=== PATIENT | female | born 1980 | race Two or more races ===

== ENCOUNTER 2019-06-17 18:18 | Emergency (ER) | payer SELFPAY ==
[2019-06-17 18:33] VITALS: BP 105/66
[2019-06-17] MEDS ORDERED: ACETAMINOPHEN 325 MG TABLET PO ONE (18:50)
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
--- NOTE | 2019-06-17 18:50 | ER Document Report ---
ED Medical Screen (RME) - General Chief Complaint: Hand Injury Stated Complaint: FINGER INJURY Time Seen by Provider: 06/17/19 18:38 Mode of Arrival: Ambulatory Information source: Patient - Related Data Allergies/Adverse Reactions: No Known Allergies Allergy (Verified 06/17/19 18:39) Physical Exam - Vital signs Vitals: Temp Pulse Resp BP Pulse Ox 98.5 F 75 18 105/66 98 06/17/19 18:32 06/17/19 18:32 06/17/19 18:32 06/17/19 18:32 06/17/19 18:32 Course - Vital Signs Vital signs: Temp Pulse Resp BP Pulse Ox 98.5 F 75 18 105/66 98 06/17/19 18:32 06/17/19 18:32 06/17/19 18:32 06/17/19 18:32 06/17/19 18:32
--- NOTE | 2019-06-17 19:12 | RADIOLOGY REPORT (SQ) ---
EXAM DESCRIPTION: HAND RIGHT 3 VIEWS COMPLETED DATE/TIME: 06/17/2019 7:02 pm REASON FOR STUDY: pain right index finger and hand COMPARISON: None. EXAM PARAMETERS: NUMBER OF VIEWS: Three views. TECHNIQUE: AP, lateral and oblique radiographic images acquired of the right hand. LIMITATIONS: None. FINDINGS: MINERALIZATION: Normal. BONES: No acute fracture or dislocation. No worrisome bone lesions. JOINTS: No effusions. SOFT TISSUES: Index finger tip soft tissue swelling. No foreign body. OTHER: No other significant finding. IMPRESSION: No acute fracture. TECHNICAL DOCUMENTATION: JOB ID: [id number] [employer]- All Rights Reserved Reading location - IP/workstation name: [email or web address]
== END 2019-06-17 19:35 | disposition home or self-care (01) ==
LOC: ER 18:18
DX: S60.021A Contusion of right index finger without damage to nail, initial encounter (principal); M79.641 Pain in right hand; M79.644 Pain in right finger(s); Y08.09XA Assault by strike by other specified type of sport equipment, initial encounter
CPT/HCPCS: 99283

== ENCOUNTER 2020-06-22 07:47 | Emergency (ER) | payer SELFPAY ==
[2020-06-22 10:11] LABS: ABSOLUTE BASOPHILS # (AUTO) 0.1 10^3/uL (0.0-0.2); ABSOLUTE EOSINOPHILS # (AUTO) 0.3 10^3/uL (0.0-0.6); ABSOLUTE LYMPHOCYTES (AUTO) 2.2 10^3/uL (0.5-4.7); ABSOLUTE MONOCYTES (AUTO) 0.5 10^3/uL (0.1-1.4); ABSOLUTE NEUT (AUTO) 6.3 10^3/uL (1.7-8.2); BASOPHILS % (AUTO) 0.6 % (0-2); EOSINOPHILS % (AUTO) 3.1 % (0-6); HEMATOCRIT 39.6 % (36.0-47.0); HEMOGLOBIN 13.4 g/dL (12.0-15.5); LYMPHOCYTES % (AUTO) 23.6 % (13-45); MEAN CORPUSCULAR HEMOGLOBIN 30.1 pg (27.0-33.4); MEAN CORPUSCULAR HGB CONC 33.8 g/dL (32.0-36.0); MEAN CORPUSCULAR VOLUME 89 fl (80-97); MONOCYTES % (AUTO) 5.4 % (3-13); PLATELET COUNT 324 10^3/uL (150-450); RED BLOOD COUNT 4.44 10^6/uL (3.72-5.28); RED CELL DISTRIBUTION WIDTH 13.2 % (11.5-14.0); SEGMENTED NEUTROPHILS % (AUTO) 67.3 % (42-78); TOTAL CELLS COUNTED % (AUTO) 100 %; WHITE BLOOD COUNT 9.4 10^3/uL (4.0-10.5)
[2020-06-22 10:14] LABS: APPEARANCE,URINE SLIGHTLY-CLOUDY; BILIRUBIN,URINE NEGATIVE (NEGATIVE); COLOR,URINE YELLOW; GLUCOSE, URINE NEGATIVE (NEGATIVE); KETONES,URINE NEGATIVE (NEGATIVE); LEUKOCYTE ESTERASE,URINE NEGATIVE (NEGATIVE); NITRITE,URINE NEGATIVE (NEGATIVE); PROTEIN,URINE NEGATIVE (NEGATIVE); URINE SPECIFIC GRAVITY 1.023; UROBILINOGEN,URINE NEGATIVE mg/dL (<2.0)
--- NOTE | 2020-06-22 10:39 | ER Document Report ---
ED GI/ - General Chief Complaint: Vag Bleeding, +preg <12wks Stated Complaint: VAGINAL BLEEDING Time Seen by Provider: 06/22/20 10:08 Primary Care Provider: ILIA,SANTA [Primary Care Provider] - Follow up as needed Notes: Patient is a 40-year-old female G3, P2 presents emergency department with a chief complaint of lower abdominal cramping. Patient reports that she has had 2 home positive test. Patient reports last night she did have a very small amount of vaginal bleeding. She reports that this was a light pink in color. Denies blood clots. States she is not currently bleeding. Patient reports her last menstrual cycle was May 08. Patient does not have a primary care physician or health insurance. Patient reports she does have some right lower quadrant intermittent pain but that is not significant. Patient reports she has had 2 C-sections in the past. Patient denies urinary symptoms. Initial examination was obtained with a dye machine tender Kiah with an ID number [id number] TRAVEL OUTSIDE OF THE [place] IN LAST 30 DAYS: No - Related Data Allergies/Adverse Reactions: No Known Allergies Allergy (Verified 06/17/19 18:39) Past Medical History - General Information source: Patient - Social History Smoking Status: Never Smoker Chew tobacco use (# tins/day): No Frequency of alcohol use: None Drug Abuse: None Lives with: Family, Spouse/Significant other Family History: Reviewed & Not Pertinent Patient has homicidal ideation: No - Past Medical History Cardiac Medical History: Reports: None Pulmonary Medical History: Reports: None EENT Medical History: Reports: None Neurological Medical History: Reports: None Endocrine Medical History: Reports: None Renal/ Medical History: Reports: None Malignancy Medical History: Reports: None GI Medical History: Reports: None Musculoskeletal Medical History: Reports None Skin Medical History: Reports None Psychiatric Medical History: Reports: None Traumatic Medical History: Reports: None Infectious Medical History: Reports: None Past Surgical History: Reports: Hx Section - Immunizations Immunizations up to date: Yes Hx Diphtheria, Pertussis, Tetanus Vaccination: Yes Review of Systems - Review of Systems Constitutional: No symptoms reported EENT: No symptoms reported Cardiovascular: No symptoms reported Respiratory: No symptoms reported Gastrointestinal: No symptoms reported Genitourinary: See HPI Female Genitourinary: No symptoms reported Musculoskeletal: No symptoms reported Skin: No symptoms reported Hematologic/Lymphatic: No symptoms reported Neurological/Psychological: No symptoms reported Physical Exam - Vital signs Vitals: Temp Pulse Resp BP Pulse Ox 98.6 F 70 18 110/59 L 100 06/22/20 07:53 06/22/20 07:53 06/22/20 07:53 06/22/20 07:53 06/22/20 07:53 Interpretation: Normal - Notes Notes: GENERAL: Well-appearing, well-nourished and in no acute distress. HEAD: Atraumatic, normocephalic. EYES: Pupils equal round and reactive to light, extraocular movements intact, sclera anicteric, conjunctiva are normal. ENT: TMs normal, nares patent, oropharynx clear without exudates. Moist mucous membranes. NECK: Normal range of motion, supple without lymphadenopathy or JVD. LUNGS: Breath sounds clear to auscultation bilaterally and equal. No wheezes rales or rhonchi. HEART: Regular rate and rhythm without murmurs, rubs or gallops. ABDOMEN: Soft, nontender, normoactive bowel sounds. No guarding, no rebound. No masses appreciated. BACK: No cervical, thoracic, lumbar midline tenderness. No saddle anesthesia, normal distal neurovascular exam. GENITOURINARY: Deferred. EXTREMITIES: Normal range of motion, no pitting or edema. No clubbing or cyanosis. NEUROLOGICAL: Cranial nerves II through XII grossly intact. Normal speech, normal gait. PSYCH: Normal mood, normal affect. SKIN: Warm, Dry, normal turgor, no rashes or lesions noted. Course - Re-evaluation Re-evalutation: 06/22/20 13:07 Patient and were updated on the plan of care and the ultrasound results. [employer] interpreting system was used with [id number]. All questions were answered. Patient states she does have a appointment with the health department on Thursday. Patient was given strict return precautions. Patient does not have any pain or current vaginal bleeding at this time. Patient blood type does not require RhoGam at this time. - Vital Signs Vital signs: Temp Pulse Resp BP Pulse Ox 97.7 F 89 15 124/84 100 06/22/20 13:21 06/22/20 13:21 06/22/20 13:21 06/22/20 13:21 06/22/20 13:21 - Laboratory Result Diagrams: 06/22/20 09:50 Laboratory results interpreted by me: 06/22/20 06/22/20 06/22/20 09:50 09:50 09:50 Serum HCG, Qual POSITIVE H Beta HCG, Quant 86573.00 H Urine Ascorbic Acid 40 H 06/22/20 13:40 Patient quant is 15,787. Patient does not have a leukocytosis or significant anemia. Patient's electrolytes are normal. Patient is O+ and does not need Rh oGam. Laboratory 06/22/20 06/22/20 06/22/20 09:50 09:50 09:50 WBC 9.4 RBC 4.44 Hgb 13.4 Hct 39.6 MCV 89 MCH 30.1 MCHC 33.8 RDW 13.2 Plt Count 324 Lymph % (Auto) 23.6 [place] % (Auto) 5.4 Eos % (Auto) 3.1 Baso % (Auto) 0.6 Absolute Neuts (auto) 6.3 Absolute Lymphs (auto) 2.2 Absolute Monos (auto) 0.5 Absolute Eos (auto) 0.3 Absolute Basos (auto) 0.1 Seg Neutrophils % 67.3 Serum HCG, Qual POSITIVE H Beta HCG, Quant Total Beta HCG Urine Color Urine Appearance Urine pH Ur Specific [place] Urine Protein Urine Glucose (UA) Urine Ketones Urine Blood Urine Nitrite Urine Bilirubin Urine Urobilinogen Ur Leukocyte Esterase Urine WBC (Auto) Urine RBC (Auto) Urine Bacteria (Auto) Squamous Epi Cells Auto Urine Mucus (Auto) Urine Ascorbic Acid Blood Type O POSITIVE Rhogam Indicated RHOGAM NOT INDICATED 06/22/20 06/22/20 09:50 09:50 WBC RBC Hgb Hct MCV MCH MCHC RDW Plt Count Lymph % (Auto) [place] % (Auto) Eos % (Auto) Baso % (Auto) Absolute Neuts (auto) Absolute Lymphs (auto) Absolute Monos (auto) Absolute Eos (auto) Absolute Basos (auto) Seg Neutrophils % Serum HCG, Qual Beta HCG, Quant 33383.00 H Total Beta HCG POSITIVE Urine Color YELLOW Urine Appearance SLIGHTLY-CLOUDY Urine pH 5.0 Ur Specific [place] 1.023 Urine Protein NEGATIVE Urine Glucose (UA) NEGATIVE Urine Ketones NEGATIVE Urine Blood NEGATIVE Urine Nitrite NEGATIVE Urine Bilirubin NEGATIVE Urine Urobilinogen NEGATIVE Ur Leukocyte Esterase NEGATIVE Urine WBC (Auto) 5 Urine RBC (Auto) 1 Urine Bacteria (Auto) TRACE Squamous Epi Cells Auto 7 Urine Mucus (Auto) MANY Urine Ascorbic Acid 40 H Blood Type Rhogam Indicated - Diagnostic Test Radiology reviewed: Reports reviewed Radiology results interpreted by me: 06/22/20 13:05 Transvaginal US 06/22/20 10:37 IMPRESSION: Small amount of endocervical canal free fluid. LIVING INTRAUTERINE . EGA 6 weeks 1 day Trimester of : First trimester - 0 to 13 weeks. Discharge - Discharge Clinical Impression: Vaginal bleeding Qualifiers: Weeks of gestation: less than 8 weeks Qualified Code(s): Z3A.01 - Less than 8 weeks gestation of Condition: Stable Disposition: HOME, SELF-CARE Additional Instructions: *Today using the emergency department for vaginal bleeding. Your ultrasound did show a intrauterine around 6 weeks. Please keep your appointment with the health department on Thursday. Please make sure you are taking a vitamin. You can take Tylenol as needed for pain but to avoid anti-inflammatory such as ibuprofen and Aleve. Please make sure you are drinking plenty of water. Please return the emergency department if you have any severe abdominal pain, increasing vaginal bleeding to include blood clots, lightheadedness or any new or worsening symptoms. You are . care is best started as early in as possible. If you're unsure about continuing this , you should discuss this with your physician or with account executive metalworking at [facility]. You should take only medications approved by your physician. Acetaminophen can safely be taken for minor pains. As a rule, medication for chronic conditions such as asthma or seizures can safely be continued. You should discuss with the physician every medicine you take. Any regular exercise program can be continued. Talk to your physician, however, before engaging in competitive or demanding sports. Alcohol, smoking, and "street drugs" are dangerous to your baby. Cocaine is especially dangerous. Don't use any illicit drugs! Referrals: [facility],NO [Primary Care Provider] - Follow up as needed
--- NOTE | 2020-06-22 12:08 | RADIOLOGY REPORT (SQ) ---
EXAM DESCRIPTION: U/S OB TRANSVAG W/DOPPLER IMAGES COMPLETED DATE/TIME: 06/22/2020 11:44 am REASON FOR STUDY: Vaginal bleeding, LMP 05/08 COMPARISON: None. TECHNIQUE: Transvaginal static and realtime grayscale images acquired of the pelvis. Additional mauro cted spectral and color Doppler images recorded. All images stored on PACs. bHCG: Not available. CLINICAL DATES: 6 weeks 3 days LIMITATIONS: None. FINDINGS: FETUS: Single Living intrauterine . ULTRASOUND EGA: 6 weeks 1 day ULTRASOUND LILI: 02/14/2021 EFW: Not applicable less than 20 weeks. CRL: 4.8 mm FHR: 118 beats per minute. SURVEY: Too early to assess. AMNIOTIC FLUID: Adequate amount. PLACENTA: Not yet developed due to early gestation. SUBCHORIONIC BLEED: No. SIZE OF BLEED: Not applicable. UTERUS: No masses. No anomalies. CERVICAL LENGTH: 3.8 cm. Small amount of endocervical canal free fluid. RIGHT ADNEXA: Normal ovary with normal vascular flow. No adnexal free fluid. No adnexal masses. LEFT ADNEXA: Normal ovary with normal vascular flow. No adnexal free fluid. No adnexal masses. FREE FLUID: None. OTHER: No other significant finding. IMPRESSION: Small amount of endocervical canal free fluid. LIVING INTRAUTERINE . EGA 6 weeks 1 day Trimester of : First trimester - 0 to 13 weeks. TECHNICAL DOCUMENTATION: JOB ID: [id number] [employer]- All Rights Reserved rev Reading location - IP/workstation name: [email or web address]
[2020-06-22 13:22] VITALS: BP 124/84
== END 2020-06-22 13:21 | disposition home or self-care (01) ==
LOC: ER 07:47
DX: O20.9 Hemorrhage in early pregnancy, unspecified (principal); Z3A.01 Less than 8 weeks gestation of pregnancy
CPT/HCPCS: 36415; 76817; 81001; 84702; 84703; 85025; 86900; 86901; 93976; 99284

== ENCOUNTER 2020-09-16 03:12 | Emergency (ER) | payer SELFPAY ==
[2020-09-16] MEDS ORDERED: PENICILLIN V POTASSIUM 500 MG TABLET PO ONE (06:44)
[2020-09-16] MEDS ORDERED: ACETAMINOPHEN 325 MG TABLET PO ONE (06:44)
[2020-09-16] MEDS ORDERED: LIDOCAINE 2% VISCOUS SOLN 15 ML UDCUP PO ONE (06:44)
[2020-09-16] MEDS ORDERED: BUPIVACAINE HCL 0.5 % INJ/PF 30 ML SDV INJ ONE (07:03)
--- NOTE | 2020-09-16 07:19 | ER Document Report ---
ED Oral Problem - General Chief Complaint: Toothache Stated Complaint: TOOTH PAIN Time Seen by Provider: 09/16/20 06:31 Mode of Arrival: Ambulatory Information source: Patient Notes: 40-year-old female presented to ED for complaint of dental pain that started 4 days ago. She stated to the right upper molar. She states she has had pain in this area before she was given antibiotics the dentist was supposed to have done a root canal and then filled the tooth. She states that she was not supposed to be able to have pain in this area afterwards but the dentist told her that it was not done properly and they packed the tooth with the infection still in. She states she went to the dentist and they told her that they could not pull the tooth until the [employer] told her that the baby was states that she could have the tooth removed and that she had had antibiotics. States she does have a appointment with her [employer] on 01 October. I am starting her on penicillin VK at this time. I did treat her with viscous lidocaine and Tylenol but she stated this did not help any. I did give her a dental block with 2 cc of bupivacaine 0.5%. She states she did have complete relief with this. Have instructed her to please take the penicillin VK as instructed and she can still use the viscous lidocaine if it helps. She can also use Tylenol for her pain. Patient has verbalized understanding and agreement with this plan and she will be discharged home. She is English-speaking and I did use [employer] fun house attendant to complete this interview and assessment. The does speak [place] and he was present as well as the [employer] fun house attendant. Constitutional: Negative for fever. HENT: Negative for sore throat. Eyes: Negative for visual changes. Cardiovascular: Negative for chest pain. Respiratory: Negative for shortness of breath. Gastrointestinal: Negative for abdominal pain, vomiting or diarrhea. Genitourinary: Negative for dysuria. Musculoskeletal: Negative for back pain. Skin: Negative for rash. Neurological: Negative for headaches, weakness or numbness. 10 point ROS negative except as marked above and in HPI. VITAL SIGNS: Within normal limits. GENERAL: No acute distress, non-toxic appearance. HEAD: Normal with no signs of head trauma. EYES: PERRLA, EOMI, conjunctiva normal, no discharge. EARS: Hearing grossly intact. NOSE: Normal. THROAT: Oropharynx is normal. NECK: Normal range of motion, no tenderness, supple, no lymphadenopathy, No adenopathy, no JVD. CHEST: Clear breath sounds bilaterally. No wheezes, rales, or rhonchi. CARDIAC: Regular rate and rhythm. S1 and S2, without murmurs, gallops, or rubs. VASCULAR: No Edema. Peripheral pulses normal and equal in all extremities. ABDOMEN: Normal and soft with no tenderness, no masses or pulsatile masses. GASTROINTESTINAL: Bowel sounds normal GENITOURINARY: Normal, No tenderness LYMPATHTIC: No lymphadenopathy noted. MUSCULOSKELETAL: Good range of motion of all major joints. Extremities without clubbing, cyanosis or edema. NEUROLOGICAL: Alert and oriented x 3. No focal sensory or strength deficits. Speech normal. Follows commands appropriately. PSYCHIATRIC: Normal Affect, judgement and mood. SKIN: Normal appearance with no rashes or lesions. TRAVEL OUTSIDE OF THE [place] IN LAST 30 DAYS: No - HPI Patient complains to provider of: Toothache Onset: Other - 4 days ago Onset: Gradual Quality of pain: Sharp, Throbbing Severity: Severe Pain Level: 5 Associated symptoms: Toothache Worsened by: Nothing Relieved by: Nothing Similar symptoms previously: Yes Recently seen / treated by doctor/dentist: Yes - Related Data Allergies/Adverse Reactions: No Known Allergies Allergy (Verified 06/17/19 18:39) Home Medications: vitamins Past Medical History - General Information source: Patient - Social History Smoking Status: Never Smoker Frequency of alcohol use: None Drug Abuse: None Lives with: Family Family History: Reviewed & Not Pertinent Patient has suicidal ideation: No Patient has homicidal ideation: No - Past Medical History Cardiac Medical History: Reports: None Pulmonary Medical History: Reports: None EENT Medical History: Reports: None Neurological Medical History: Reports: None, Other - 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 Endocrine Medical History: Reports: None Renal/ Medical History: Reports: None Malignancy Medical History: Reports: None GI Medical History: Reports: None Musculoskeletal Medical History: Reports None Skin Medical History: Reports None Psychiatric Medical History: Reports: None Traumatic Medical History: Reports: None Infectious Medical History: Reports: None Past Surgical History: Reports: Hx Section, Other - Mole removed - Immunizations Immunizations up to date: Yes Hx Diphtheria, Pertussis, Tetanus Vaccination: Yes - 2016 Physical Exam - Vital signs Vitals: Temp Pulse Resp BP Pulse Ox 98.4 F 99 22 H 110/66 99 09/16/20 03:16 09/16/20 03:16 09/16/20 03:16 09/16/20 03:16 09/16/20 03:16 Course - Re-evaluation Re-evalutation: 09/16/20 07:26 Patient states the viscous lidocaine and Tylenol did not relieve the pain. I did discuss this with Dr. Soria and he stated to use 1 to 2 mL of 5% bupivacaine and injected into the gums at the side of the tooth. I did give her 2 cc of bupivacaine 5% and she stated she did get complete relief. He states the only time it hurts now is if she takes her to wrong and rubs the tooth then it is still a little pain. - Vital Signs Vital signs: Temp Pulse Resp BP Pulse Ox 98.4 F 99 22 H 110/66 99 09/16/20 03:16 09/16/20 03:16 09/16/20 03:16 09/16/20 03:16 09/16/20 03:16 - Laboratory Results Critical Laboratory Results Reviewed: No Critical Results - Radiology Results Critical Radiology Results Reviewed: No Critical Results Discharge - Discharge Clinical Impression: Pain due to dental caries Condition: Stable Disposition: HOME, SELF-CARE Additional Instructions: TOOTHACHE: Your pain is due to dental decay. The tooth must be repaired in order for you to feel better. You will, therefore, be referred to a dentist. We do not have dentists on the staff at [facility]. Severe swelling or drainage around a tooth usually means a dental abscess. This also requires evaluation and treatment by the dentist, but antibiotics may be prescribed while awaiting dental treatment. You should be rechecked immediately if you develop major swelling of the face, increasing pain, a lump in the jaw or gums, headache, difficulty swallowing, or fever. PENICILLIN V K: You have been given a prescription for Penicillin VK. Your physician has determined that this is the best antibiotic for your condition. Pen VK can be taken with meals, however more of the antibiotic gets into the bloodstream if it's taken on an empty stomach. Penicillin usually has no side effects. However, allergy to penicillins is common. If you have had an allergic reaction to any drug of the penicillin family, you should never take any other penicillin. Notify your doctor at once if you develop hives, itching, swelling, faintness, or shortness of breath. Salt and soda solution gargle 1 quart of water 1 tablespoon of salt 1 teaspoon of baking soda Mixed 3 ingredients together and boil for 1 minute Placed in a covered quart jar Use 1/2 ounce of cold solution to gargle 3 times a day FOLLOW-UP CARE: You have been referred for follow-up care to the dentists listed below. Call the dentists office for an appointment as you were instructed or within the next two days. If you experience worsening or a significant change in your symptoms, notify the physician immediately or return to the Emergency Department at any time for re-evaluation. Is call your [employer]IVER and let them know that you have a dental cavity and that you need clearance from them before you can have the tooth removed. [facility] [address] [place] [address] [facility] [address] [facility] [address] [facility] [address] [email or web address] [address] [place] [address] Thursday- 8:00am to 5:00 pm Will see patients from other [facility]. Charges based on income and family size and accepts Medicare, Medicaid, and Insurances Will pull molars [facility] [address] Hours of Operation 8:00 am - 4:30 pm weekdays The following dental offices accept Medicaid: [facility] Dr. Salazar Dr. Marquez Dr. Joshua Dr. Garcia Dave Coles Lutsavage, and Agatha oral surgery Dr. Fulton ([place]) Dr. Blancas ([place]) [facility] Drs. Souza and Chato ([place]) Dr. Garcia ([place]) [facility] Dr. Sharma ([place]) Drs. Minaya and ([place]) Medicaid Care Line Prescriptions: Penicillin V Potassium [Penicillin Vk 500 mg Tablet] 500 mg PO BID #20 tablet Referrals: [facility] [Provider Group] - Follow up as needed [facility] [Provider Group] - Follow up as needed
[2020-09-16 07:47] VITALS: BP 112/68
== END 2020-09-16 07:33 | disposition home or self-care (01) ==
LOC: ER 03:12
DX: K02.9 Dental caries, unspecified (principal)
CPT/HCPCS: 99283; 64400; J3490 ×2